=== PATIENT | female | born 1935 | race Caucasian/White ===

== ENCOUNTER 2016-06-22 08:12 | Emergency (ER) | payer MEDICARE, OTHER ==
[~2016-06-22] VITALS: Ht 149.9 cm; Wt 69.8 kg
[~2016-06-22 08:12] MED LIST: CLARITIN10 MG PO; DYRENIUM50 MG PO; GLUCOPHAGE XR500 MG PO; GLUCOTROL10 MG PO; HALFPRIN81 MG PO; HYDROCHLOROTHIA50 MG PO; LIPITOR10 MG PO; MACROBID100 MG PO; MELATONIN3 MG PO; PRINIVIL20 MG PO; SYNTHROID25 MCG PO; TOPROL XL25 MG PO; TYLENOL500 MG PO; ZANTAC300 MG PO
[2016-06-22] MEDS ORDERED: XANAX0.25 MG PO (11:15)
[2016-06-22] MEDS ORDERED: ULTRAM50 MG PO (11:16)
[2016-06-22] MEDS ORDERED: DILTIAZEM ER240 MG PO (11:17)
[2016-06-22] MEDS ORDERED: PLAVIX75 MG PO (11:17)
== END 2016-06-22 11:00 | disposition short-term general hospital (02) ==
LOC: ER 08:12
DX: I10 Essential (primary) hypertension (principal); E11.65 Type 2 diabetes mellitus with hyperglycemia; F41.9 Anxiety disorder, unspecified; E78.5 Hyperlipidemia, unspecified; E03.9 Hypothyroidism, unspecified; Z79.84 Long term (current) use of oral hypoglycemic drugs; Z79.899 Other long term (current) drug therapy; Z88.8 Allergy status to other drugs, medicaments and biological substances; Z79.82 Long term (current) use of aspirin

== ENCOUNTER 2016-08-05 03:21 | Emergency (ER) | payer MEDICARE, OTHER ==
[~2016-08-05] VITALS: Ht 149.9 cm; Wt 69.9 kg
[~2016-08-05 03:21] MED LIST changes: +DILTIAZEM ER240 MG PO; +PLAVIX75 MG PO; +ULTRAM50 MG PO; +XANAX0.25 MG PO
== END 2016-08-05 05:40 | disposition short-term general hospital (02) ==
LOC: ER 03:21
DX: S72.012A Unspecified intracapsular fracture of left femur, initial encounter for closed fracture (principal); K21.9 Gastro-esophageal reflux disease without esophagitis; F41.9 Anxiety disorder, unspecified; E78.5 Hyperlipidemia, unspecified; E03.9 Hypothyroidism, unspecified; I10 Essential (primary) hypertension; E11.9 Type 2 diabetes mellitus without complications; Z86.73 Personal history of transient ischemic attack (TIA), and cerebral infarction without residual deficits; Z79.82 Long term (current) use of aspirin; Z79.84 Long term (current) use of oral hypoglycemic drugs; Z79.899 Other long term (current) drug therapy; Z88.8 Allergy status to other drugs, medicaments and biological substances; Z90.49 Acquired absence of other specified parts of digestive tract
CPT/HCPCS: 73502-LT; J2405

== ENCOUNTER → 2016-08-16 | Outpatient (CLI) | payer OTHER, MEDICARE | END | disposition short-term general hospital (02) | LOC: CLORTH 07:43 | DX: Z47.1 Aftercare following joint replacement surgery (principal); Z96.642 Presence of left artificial hip joint | CPT/HCPCS: 73502-LT ==